=== PATIENT | male | born 1960 | race African-American/Black ===

== ENCOUNTER → 2020-04-30 | Outpatient (CLI) | payer OTHER ==
--- NOTE | 2020-04-30 16:50 | RAD ---
PA and lateral chest radiographs 04/30/2020 CLINICAL HISTORY: Chest pain. PA and lateral digital radiographs of the chest were obtained. No previous studies are available for comparison. The cardiac silhouette is normal in size. The thoracic aorta is mildly tortuous. The cardiothoracic thoracic ratio is 0.47 which is within normal limits. No acute pulmonary infiltrate is seen. No pleural effusion or pneumothorax is noted. Degenerative changes are seen involving the thoracic spine. A healed left-sided fifth rib fracture is noted. IMPRESSION: No acute abnormality is seen. Electronically signed by: Beck Suazo MD (04/30/2020 4:19 PM) [id number]
--- NOTE | 2020-04-30 18:33 | RAD ---
EXAM: KNEE BILAT 2V. HISTORY: Bilateral knee pain. COMPARISON: None. FINDINGS: No fractures are identified bilaterally. The joint spaces and alignment of both knees are maintained. There is no clear joint effusion. Atherosclerotic calcifications are noted. IMPRESSION: 1. No fracture or clear degenerative change for patient age. Electronically signed by: Sarina Cai MD (04/30/2020 6:30 PM) [facility]
== END ==
LOC: DXRAD 15:30
PROVIDERS: ATTEND Anesthesiology Pain Medicine
DX: M25.561 Pain in right knee (principal); M25.562 Pain in left knee; R07.9 Chest pain, unspecified; M47.814 Spondylosis without myelopathy or radiculopathy, thoracic region
CPT/HCPCS: 71046; 73560